=== PATIENT | male | born 1980 | race Caucasian/White ===

== ENCOUNTER 2022-07-17 20:15 | Emergency (ER) | payer BC ==
[2022-07-17 21:07] VITALS: TEMP 98.4
[2022-07-17] MEDS ORDERED: LIDOCAINE 1% INJ 10MG/ML (30 ML VIAL-PF) SQ ONE (21:25)
[2022-07-17] MEDS ORDERED: CLINDAMYCIN 600 MG/50 ML-D5W 600 MG in DEXTROSE/WATER 1 50ML.BAG IVPB ONE (21:30)
--- NOTE | 2022-07-17 22:07 | XR ---
PROCEDURE: XR hand complete RT - 3V DATE AND TIME: 07/17/2022 9:44 PM CLINICAL INDICATION: PHH; thumb infection TECHNIQUE: Department protocol COMPARISON: None FINDINGS: There is no fracture or malalignment. There is soft tissue swelling of the thumb, but no ra diopaque foreign body or evidence of soft tissue emphysema. IMPRESSION: Thumb soft tissue swelling.
--- NOTE | 2022-07-17 22:49 | ED ---
General Adult HPI - General Chief complaint: Skin/Abscess/Foreign Body Stated complaint: right thumb infection Time Seen by Provider: 07/17/22 21:10 Source: patient Mode of arrival: ambulatory Limitations: no limitations - History of Present Illness Initial comments: 41-year-old male presents to emergency department reporting infection of his right thumb. States that he was working on a car on Thursday when he accidentally scraped his hand on the engine. He is right-hand dominant. He went to urgent care on Thursday where he received a tetanus vaccine and was placed on Keflex. States he's been taking it as directed 3 times daily however feels that the wound is starting to look worse. He has been getting some drainage from the site. She does have some tenderness to the anterior aspect of the right thumb with flexion. Denies any fevers. No history of diabetes or drug use. No other alleviating, precipitating or modifying factors - Related Data Previous Rx's Medication Instructions Recorded clindamycin HCL [Cleocin] 300 mg PO Q6HR #28 cap 07/17/22 Allergies Allergy/AdvReac Type Severity Reaction Status Date / Time No Known Allergies Allergy Verified 07/17/22 21:07 Review of Systems ROS Statement: Those systems with pertinent positive or pertinent negative responses have been documented in the HPI. ROS Other: All systems not noted in ROS Statement are negative. Past Medical History Past Medical History: No Reported History History of Any Multi-Drug Resistant Organisms: None Reported Past Surgical History: No Surgical Hx Reported Past Psychological History: No Psychological Hx Reported Smoking Status: Never smoker Past Alcohol Use History: None Reported Past Drug Use History: None Reported General Exam Limitations: no limitations General appearance: alert, in no apparent distress Extremities exam: Present: normal inspection, full ROM, normal capillary refill. Absent: tenderness, pedal edema, joint swelling, calf tenderness Neurological exam: Present: alert, oriented X3, CN II-XII intact Psychiatric exam: Present: normal affect, normal mood Skin exam: Present: warm, dry (two areas of possible abscess right anterior thumb - 1.5 cm and 2.0 cm. central fluctuance no bleeding. no cellulitis. no decreased ROM. No joint swelling. 2+ radial and ulnar pulses) Course Vital Signs 07/17/22 07/17/22 21:05 22:55 Temperature 98.4 F Pulse Rate 87 72 Respiratory 16 15 Rate Blood Pressure 153/85 136/72 O2 Sat by Pulse 97 98 Oximetry Medical Decision Making - Medical Decision Making Was pt. sent in by a medical professional or institution ([facility], [facility], urgent care, hospital, or fdc...) When possible be specific @ -no Did you speak to anyone other than the patient for history (EMS, parent, family, police, friend...)? What history was obtained from this source @ -no Did you review nursing and triage notes (agree or disagree)? Why? @ -I reviewed and agree with nursing and triage notes Were old charts reviewed (outside hosp., previous admission, EMS record, old EKG, old radiological studies, urgent care reports/EKG's, fdc records)? Report findings @ -No old charts were reviewed Differential Diagnosis (chest pain, altered mental status, abdominal pain women, abdominal pain men, vaginal bleeding, weakness, fever, dyspnea, syncope, headache, dizziness, GI bleed, back pain, seizure, CVA, palpatations, mental health, musculoskeletal)? @ -cellulitis, retained foreign body, abscess, mrsa, tetanus EKG interpreted by me (3pts min.). @ -None done X-rays interpreted by me (1pt min.). @ -yes CT interpreted by me (1pt min.). @ -None done U/S interpreted by me (1pt. min.). @ -None done What testing was considered but not performed or refused? (CT, X-rays, U/S, labs)? Why? @ -None What meds were considered but not given or refused? Why? @ -None Did you discuss the management of the patient with other professionals (professionals i.e. [facility], [employer], lab, RT, psych nurse, social sciences instructor, dispatcher bus and trolley, teacher, founder and chief technical officer, comp field case manager)? Give summary @ -No Was smoking cessation discussed for >3mins.? @ -No Was critical care preformed (if so, how long)? @ -No Were there social determinants of health that impacted care today? How? (Homelessness, low income, unemployed, alcoholism, drug addiction, transportation, low edu. Level, literacy, decrease access to med. care, senior care, rehab)? @ -none Was there de-escalation of care discussed even if they declined (Discuss DNR or withdrawal of care, Hospice)? DNR status @ -No What co-morbidities impacted this encounter? (DM, HTN, Smoking, COPD, CAD, Cancer, CVA, ARF, Chemo, Hep., AIDS, mental health diagnosis, sleep apnea, morbid obesity)? @ -None Was patient admitted / discharged? Hospital course, mention meds given and route, prescriptions, significant lab abnormalities, going to OR and other pertinent info. @ -Upon arrival patient was placed into room 28. Thorough history and physical exam is performed. X-ray was performed which demonstrates no retained foreign bodies. Incision and drainage was performed using #11 blade. Cultures were obtained. Patient was given a dose of clindamycin. He will be discharged home on clindamycin. Instructed to allow 42-72 hours. If he has no improvement in his symptoms, he must return to the emergency room for IV anabiotics. Patient understood and was agreeable to this. Given written and verbal discharge instructions and discharged home in stable condition Undiagnosed new problem with uncertain prognosis? @ -No Drug Therapy requiring intensive monitoring for toxicity (Heparin, Nitro, Insulin, Cardizem)? @ -No Were any procedures done? @ -Yes - incision and drainage right thumb Diagnosis/symptom? @ -acute right thumb abscess, acute right thumb cellulitis Acute, or Chronic, or Acute on Chronic? @ -acute Uncomplicated (without systemic symptoms) or Complicated (systemic symptoms)? @ -uncomplicated Side effects of treatment? @ -No Exacerbation, Progression, or Severe Exacerbation? @ -No Poses a threat to life or bodily function? How? (Chest pain, [place], [place], pneumonia, PE, COPD, DKA, ARF, appy, cholecystitis, CVA, Diverticulitis, Homicidal, Suicidal, threat to staff... and all critical care pts) @ -No Disposition Clinical Impression: Cellulitis, Abscess of finger Disposition: HOME SELF-CARE Condition: Stable Instructions (If sedation given, give patient instructions): Abscess Incision and Drainage (ED) Additional Instructions: Start taking the new antibiotics. If your finger continues to look worse in 48- 72 hours, return to the hospital for IV antibiotics and hospitalization Prescriptions: clindamycin HCL [Cleocin] 300 mg PO Q6HR #28 cap Is patient prescribed a controlled substance at d/c from ED?: No Referrals: Francisco Andrade MD [Primary Care Provider] - 1-2 days Time of Disposition: 22:48
[2022-07-17 22:56] VITALS: BP 136/72; PULSE 72; RESP 15
== END 2022-07-17 23:04 | disposition home or self-care (01) ==
LOC: EC 20:15
DX: L02.511 Cutaneous abscess of right hand (principal)
CPT/HCPCS: 87070; 87205; 73130; 99283; 96365; 26010; J2001

== ENCOUNTER → 2023-05-07 | Outpatient (CLI) | payer BC ==
--- NOTE | 2023-05-08 14:48 | US ---
EXAMINATION TYPE: US venous doppler duplex LE LT DATE OF EXAM: 05/07/2023 4:14 PM COMPARISON: NONE CLINICAL INDICATION: Male, 42 years old with history of M79.605 PAIN IN LEFT LEG; pain in left leg SIDE PERFORMED: Left TECHNIQUE: The lower extremity deep venous system is examined utilizing real time linear array sonog miguel a with graded compression, doppler sonography and color-flow sonography. VESSELS IMAGED: Common Femoral Vein Deep Femoral Vein Greater Saphenous Vein * Femoral Vein Popliteal Vein Small Saphenous Vein * Proximal Calf Veins (* superficial vessels) Left Leg: Negative for DVT IMPRESSION: No evidence for DVT within the left lower extremity imaged from the groin to the upper calf.
== END | disposition home or self-care (01) ==
LOC: RADUSWWP 15:53
PROVIDERS: ATTEND Family Medicine
DX: M79.605 Pain in left leg (principal)

== ENCOUNTER 2023-06-11 12:19 | Inpatient (IN) | payer BC ==
--- NOTE | 2023-06-11 12:46 | ED ---
Psych HPI - General Chief Complaint: Psychiatric Symptoms Stated Complaint: mental health Time Seen by Provider: 06/11/23 12:36 Source: patient, RN notes reviewed Mode of arrival: ambulatory Limitations: no limitations - History of Present Illness Initial Comments: 42-year-old male presents emergency department with chief complaint of depression, suicide ideation. Patient states has been having increasing symptoms. He is currently on Effexor he states he is struggled with depression for most of his life. Patient states he had a recent divorce which symptoms are getting worse. He states he plans to jump in the river. Patient states that family has concerns and wanted him evaluated. - Related Data Home Medications Medication Instructions Recorded Confirmed Albuterol Sulfate [Albuterol 1 - 2 puff PO RT-Q6H PRN 06/11/23 06/11/23 Sulfate Hfa] Fluticasone/Umeclidin/Vilanter 1 puff INHALATION RT-DAILY 06/11/23 06/11/23 [Trelegy Ellipta 200-62.5-25] Venlafaxine HCl [Effexor XR] 150 mg PO DAILY 06/11/23 06/11/23 Allergies Allergy/AdvReac Type Severity Reaction Status Date / Time No Known Allergies Allergy Verified 06/11/23 13:58 Review of Systems ROS Statement: Those systems with pertinent positive or pertinent negative responses have been documented in the HPI. ROS Other: All systems not noted in ROS Statement are negative. Past Medical History Past Medical History: Asthma History of Any Multi-Drug Resistant Organisms: None Reported Past Surgical History: No Surgical Hx Reported Past Psychological History: Anxiety, Depression Smoking Status: Never smoker Past Alcohol Use History: None Reported Past Drug Use History: None Reported General Exam Limitations: no limitations General appearance: alert, in no apparent distress Head exam: Present: atraumatic, normocephalic, normal inspection Eye exam: Present: normal appearance, PERRL, EOMI. Absent: scleral icterus, conjunctival injection, periorbital swelling ENT exam: Present: normal exam, normal oropharynx, mucous membranes moist Neck exam: Present: normal inspection, full ROM. Absent: tenderness, meningismus, lymphadenopathy Respiratory exam: Present: normal lung sounds bilaterally. Absent: respiratory distress, wheezes, rales, rhonchi, stridor Cardiovascular Exam: Present: regular rate, normal rhythm, normal heart sounds. Absent: systolic murmur, diastolic murmur, rubs, gallop, clicks Neurological exam: Present: alert, oriented X3 Skin exam: Present: warm, dry, intact, normal color. Absent: rash Course Vital Signs 06/11/23 12:30 Temperature 98 F Pulse Rate 79 Respiratory 16 Rate Blood Pressure 142/92 O2 Sat by Pulse 98 Oximetry Medical Decision Making - Medical Decision Making Was pt. sent in by a medical professional or institution (, [facility], CRIME SC[employer] EVIDENCE TECHNICIAN, urgent care, hospital, or retirement...) When possible be specific @ -[No] Did you speak to anyone other than the patient for history (EMS, parent, family, police, friend...)? What history was obtained from this source @ -[No] Did you review nursing and triage notes (agree or disagree)? Why? @ -[I reviewed and agree with nursing and triage notes] Were old charts reviewed (outside hosp., previous admission, EMS record, old EKG, old radiological studies, urgent care reports/EKG's, retirement records)? Report findings @ -Sister providing some past medical history Differential Diagnosis (chest pain, altered mental status, abdominal pain women, abdominal pain men, vaginal bleeding, weakness, fever, dyspnea, syncope, headache, dizziness, GI bleed, back pain, seizure, CVA, palpatations, mental health, musculoskeletal)? @ -Differential Mental Health Depression, anxiety, bipolar, psychosis, schizophrenia, borderline personality, situational depression, adjustment disorder, behavioral disorder, brain tumor, malingering, substance abuse, encephalopathy, medication reaction, dementia, hypothyroidism, degenerative neurologic disorder, lupus.... This is not meant to be all-inclusive list EKG interpreted by me (3pts min.). @ -None X-rays interpreted by me (1pt min.). @ -[None done] CT interpreted by me (1pt min.). @ -[None done] U/S interpreted by me (1pt. min.). @ -[None done] What testing was considered but not performed or refused? (CT, X-rays, U/S, labs)? Why? @ -[None] What meds were considered but not given or refused? Why? @ -[None] Did you discuss the management of the patient with other professionals (professionals i.e. , [facility], CRIME SCENE EVIDENCE TECHNICIAN, lab, RT, psych nurse, social media executive, manager restaurant, teacher, staff electronic warfare officer, gearcase assembler)? Give summary @ -EPS evaluated the patient and recommended inpatient treatment Was smoking cessation discussed for >3mins.? @ -[No] Was critical care preformed (if so, how long)? @ -[No] Were there social determinants of health that impacted care today? How? (Homelessness, low income, unemployed, alcoholism, drug addiction, transport ation, low edu. Level, literacy, decrease access to med. care, nursing home, rehab)? @ -[No] Was there de-escalation of care discussed even if they declined (Discuss DNR or withdrawal of care, Hospice)? DNR status @ -[No] What co-morbidities impacted this encounter? (DM, HTN, Smoking, COPD, CAD, Cancer, CVA, ARF, Chemo, Hep., AIDS, mental health diagnosis, sleep apnea, morbid obesity)? @ -Depression Was patient admitted / discharged? Hospital course, mention meds given and route, prescriptions, significant lab abnormalities, going to OR and other pertinent info. @ -Admitted to psychiatric floor for further treatment management Undiagnosed new problem with uncertain prognosis? @ -[No] Drug Therapy requiring intensive monitoring for toxicity (Heparin, Nitro, Insulin, Cardizem)? @ -[No] Were any procedures done? @ -[No] Diagnosis/symptom? @ -Depression, suicide ideation Acute, or Chronic, or Acute on Chronic? @ -Yes Uncomplicated (without systemic symptoms) or Complicated (systemic symptoms)? @ -complicated Side effects of treatment? @ -[No] Exacerbation, Progression, or Severe Exacerbation? @ -[No] Poses a threat to life or bodily function? How? (Chest pain, [place], [place], pneumonia, PE, COPD, DKA, ARF, appy, cholecystitis, CVA, Diverticulitis, Homicidal, Suicidal, threat to staff... and all critical care pts) @ -yes patient has SI - Lab Data Lab Results 06/11/23 Range/Units 12:46 Urine Opiates Screen Not Detected (NotDetected) Ur Oxycodone Screen Not Detected (NotDetected) Urine Methadone Screen Not Detected (NotDetected) Ur Barbiturates Screen Not Detected (NotDetected) U Tricyclic Antidepress Not Detected (NotDetected) Ur Phencyclidine Scrn Not Detected (NotDetected) Ur Amphetamines Screen Not Detected (NotDetected) U Methamphetamines Scrn Not Detected (NotDetected) U Benzodiazepines Scrn Not Detected (NotDetected) Urine Cocaine Screen Not Detected (NotDetected) U Marijuana (THC) Screen Detected H (NotDetected) Disposition Clinical Impression: Depression, Suicidal ideation Disposition: TRANSFER TO PSYCH HOSP/UNIT Referrals: Francisco Andrade MD [Primary Care Provider] - 1-2 days Time of Disposition: 13:53
[2023-06-11 14:17] LABS: Amphetamine Screen,Urine Not Detected (NotDetected); Barbiturate Screen,Urine Not Detected (NotDetected); Benzodiazepines Screen,Urine Not Detected (NotDetected); Cocaine Screen,Urine Not Detected (NotDetected); Methadone Screen, Urine Not Detected (NotDetected); Opiate Screen,Urine Not Detected (NotDetected); Oxycodone Screen, Urine Not Detected (NotDetected); Phencyclidine Screen,Urine Not Detected (NotDetected); Tricyclic Antidepressant,Urine Not Detected (NotDetected); Urn Cannabinoid Scrn Detected (NotDetected)
[2023-06-11] MEDS ORDERED: ALBUTEROL INHALER 60 PUFF/8 GM INHALER (MHU) INHALATION PRN (18:08)
[2023-06-11] MEDS ORDERED: haloperidoL 5 MG TAB PO PRN (18:09)
[2023-06-11] MEDS ORDERED: MAGNESIUM HYDROXIDE 2,400 MG/30 ML CUP PO PRN (18:09)
[2023-06-11] MEDS ORDERED: IBUPROFEN 600 MG TAB PO PRN (18:09)
[2023-06-11] MEDS ORDERED: HALOPERIDOL LACTATE 5 MG/ML 1 ML VIAL IM PRN (18:09)
[2023-06-11] MEDS ORDERED: MAG HYDROX/AL HYDROX/SIMETH 355 ML BOTTLE PO PRN (18:09)
[2023-06-11] MEDS ORDERED: LORazepam 1 MG TAB PO PRN (18:09)
[2023-06-11] MEDS: LORazepam 1 MG TAB PO PRN (20:23)
[2023-06-11] MEDS: ACETAMINOPHEN TAB 325 MG TAB PO PRN (20:23)
[2023-06-11] MEDS ORDERED: traZODone HCL 100 MG TAB PO PRN (21:58)
--- NOTE | 2023-06-12 03:50 | P.MDCNMH ---
History of Present Illness H&P Date: 06/12/23 Chief Complaint: Medical evaluation 42-year-old male with moderate persistent asthma coming in for psych evaluation due to depression and suicidal ideation patient recently has been going through a divorce started having overwhelming negative thoughts was planning on jumping off the bridge and was urged by his family to come to the hospital for evaluation Patient otherwise denies any trouble breathing nausea vomiting chest pain denies any fevers chills denies any cough Patient denies tobacco smoking illicit drugs or heavy alcohol, he admits to vaping and marijuana review of systems Pertinent positives as noted in HPI. All other systems were reviewed and are negative on exam Constitutional: No acute distress, Eyes: Anicteric sclerae, moist conjunctiva, Pupils equal round reactive to light Lungs: Clear to auscultation Clear to percussion Normal respiratory effort, no accessory muscle use Cardiovascular: Heart regular in rate and rhythm, No murmurs, gallops, or rubs No peripheral edema Abdominal: Soft Nontender, no guarding, rebound or rigidity Abdomen moving with respiration Normoactive bowel sounds Extremities: No digital cyanosis No clubbing Pedal pulses intact and symmetrical Radial pulses intact and symmetrical No calf tenderness Psychiatric: Alert and oriented to person, place and time Neuro Muscles Strength 5/5 in all 4 extremities Sensation to light touch grossly present throughout Cranial nerves II-XII grossly intact Past Medical History Past Medical History: Asthma History of Any Multi-Drug Resistant Organisms: None Reported Past Surgical History: No Surgical Hx Reported Past Anesthesia/Blood Transfusion Reactions: No Reported Reaction Smoking Status: Vaper - Past Family History Father Family Medical History: No Reported History Mother Family Medical History: No Reported History Medications and Allergies Home Medications Medication Instructions Recorded Confirmed Type Albuterol Sulfate [Albuterol 1 - 2 puff PO RT-Q6H PRN 06/11/23 06/11/23 History Sulfate Hfa] Fluticasone/Umeclidin/Vilanter 1 puff INHALATION RT-DAILY 06/11/23 06/11/23 History [Trelegy Ellipta 200-62.5-25] Venlafaxine HCl [Effexor XR] 150 mg PO DAILY 06/11/23 06/11/23 History Allergies Allergy/AdvReac Type Severity Reaction Status Date / Time No Known Allergies Allergy Verified 06/11/23 13:58 Physical Exam Vitals: Vital Signs Temp Pulse Pulse Resp BP BP Pulse Ox 06/11/23 18:30 97.3 F L 92 20 160/91 98 06/11/23 18:26 85 14 120/73 98 06/11/23 12:30 98 F 79 16 142/92 98 Intake and Output 06/11/23 06/11/23 06/12/23 14:59 22:59 06:59 Other: Weight 90.718 kg 95.311 kg Cranial Nerve Examination - Cranial Nerves Cranial Nerve II- Optic: Intact Cranial Nerve III- Oculomotor: Intact Cranial Nerve IV- Trochlear: Intact Cranial Nerve V- Trigeminal: Intact Cranial Nerve - Abducens: Intact Cranial Nerve VII- Facial: Intact Cranial Nerve VIII- Auditory: Intact Cranial Nerve IX- Glossopharyngeal: Intact Cranial Nerve X- Vagus: Intact Cranial Nerve XI- Accessory: Intact Cranial Nerve XII- Hypoglossal: Intact Results Labs: Abnormal Lab Results - Last 24 Hours (Table) 06/11/23 Range/Units 12:46 U Marijuana (THC) Screen Detected H (NotDetected) Assessment and Plan Assessment: Moderate persistent asthma Continue home inhalers Albuterol inhaler as needed Depression and suicidal ideation Management per psych Obesity Patient counseled for lifestyle modification weight loss Blood work pending Urine drug screen positive for marijuana Patient stable from medical standpoint Thank you for this consultation
[2023-06-12] MEDS ORDERED: NICOTINE 14MG/24HR PATCH TRANSDERM SCH (09:00)
[2023-06-12 09:25] LABS: Basophils # (A) 0.1 k/uL (0-0.2); Basophils % (A) 1 %; Eosinophils # (A) 0.2 k/uL (0-0.7); Eosinophils % (A) 2 %; HCT 51.3 % (39.0-53.0); HGB 16.4 gm/dL (13.0-17.5); Lymphocytes # (A) 2.1 k/uL (1.0-4.8); Lymphocytes % (A) 29 %; MCV 87.5 fL (80.0-100.0); Mean Platelet Volume 7.8; Monocytes # (A) 0.4 k/uL (0-1.0); Monocytes % (A) 6 %; Neutrophils # (A) 4.4 k/uL (1.3-7.7); Neutrophils % (A) 60 %; Platelet Count 286 k/uL (150-450); RBC 5.86 m/uL (4.30-5.90); RDW 13.1 % (11.5-15.5); WBC 7.3 k/uL (3.8-10.6)
[2023-06-12] MEDS: FLUTICASONE 110 MCG INHALER INHALATION SCH (09:42)
[2023-06-12] MEDS: VENLAFAXINE HCL ER 150 MG CAP PO SCH (09:42)
[2023-06-12 11:14] LABS: ALT 55 U/L (4-49); AST 50 U/L (17-59); African American GFR (CKD) >90 (>60 ml/min/1.73 sqM); Albumin 4.9 g/dL (3.5-5.0); Alkaline Phosphatase 75 U/L (38-126); Anion Gap 9 mmol/L; Blood Urea Nitrogen 15 mg/dL (9-20); Calcium 10.2 mg/dL (8.4-10.2); Carbon Dioxide 29 mmol/L (22-30); Chloride 104 mmol/L (98-107); Glucose 114 mg/dL (74-99); Non-African American GFR(CKD) >90 (>60 ml/min/1.73 sqM); Potassium 4.7 mmol/L (3.5-5.1); Sodium 142 mmol/L (137-145); Total Bilirubin 0.9 mg/dL (0.2-1.3); Total Protein 7.9 g/dL (6.3-8.2)
[2023-06-12] MEDS: LITHIUM CARBONATE 150 MG CAP PO SCH (13:47)
--- NOTE | 2023-06-12 13:57 | P.HP ---
Psychiatric H&P - . H&P Date: 06/12/23 History & Physical: Allergies Allergy/AdvReac Type Severity Reaction Status Date / Time No Known Allergies Allergy Verified 06/11/23 13:58 Vital Signs Temp 98.1 F 06/12/23 06:51 Pulse 76 06/12/23 06:51 Resp 16 06/12/23 06:51 BP 140/82 06/12/23 06:51 Pulse Ox 98 06/12/23 06:51 FiO2 Intake & Output 06/11/23 06/12/23 06/12/23 18:59 06:59 18:59 Weight 95.311 kg 95.311 kg Laboratory Last Values Urine Opiates Screen Not Detected (NotDetected) 06/11/23 12:46 Ur Oxycodone Screen Not Detected (NotDetected) 06/11/23 12:46 Urine Methadone Screen Not Detected (NotDetected) 06/11/23 12:46 Ur Barbiturates Screen Not Detected (NotDetected) 06/11/23 12:46 U Tricyclic Antidepress Not Detected (NotDetected) 06/11/23 12:46 Ur Phencyclidine Scrn Not Detected (NotDetected) 06/11/23 12:46 Ur Amphetamines Screen Not Detected (NotDetected) 06/11/23 12:46 U Methamphetamines Scrn Not Detected (NotDetected) 06/11/23 12:46 U Benzodiazepines Scrn Not Detected (NotDetected) 06/11/23 12:46 Urine Cocaine Screen Not Detected (NotDetected) 06/11/23 12:46 U Marijuana (THC) Screen Detected (NotDetected) H 06/11/23 12:46 SARS-CoV-2 (PCR) Not Detected (Not Detectd) 06/11/23 15:09 06/12/23 08:54 IDENTIFYING DATA: Patient is a 42 year old male, , but , lives in a house with and daughter. Works an IT job. HPI: Patient presented to the hospital on 06/10. As per EPS note, "presenting with SI w plan to jump into the river. Cl reports the thoughts are related to life stressors surrounding a pending divorce, extramarital affair brought on by Cl with a co-worker, affair ending via co-worker and increased tension in workplace. Cl reports hx of depression and anxiety along with "some paranoia" about " what people will think of me." Cl reports having 1 child and is concerned about their wellbeing. Cl brought in by their sister who offered no additional comments or concerns. Cl presents overwhelmed, anxious, tearful, flat affect, soft speech, poor eye contact, and guarded. Cl reports the divorce process has not been started but has been discussed for the past 5 yrs." Stressors include work, relationship issues. Patient claims that he would not have checked into the unit, if he knew he wouldn't be able to leave. Been having anxiety and depression for a couple years now, more so the past couple months. Patient states he called his mom and told her that he feels he should jump into the river. Mother came over to check on the patient. Sister brought him into the ER. States he does not sleep well at night. Has trouble initiating sleep and staying asleep. Patient states his appetite is good. Patient denies any suicidal or homicidal ideations intent or plan. At this time patient denies any auditory or visual hallucinations. Patient denies any flight of ideas racing thoughts and increased in goal directed behavior. Patient admits to using marijuana and a nicotine vape. PAST PSYCHIATRIC HISTORY: Claims that he has a history of anxiety and depression. Denies any previous inpatient psychiatric admissions in the past. Has been to therapy in the past. Has taken Effexor 75mg, prescribed by his PCP Patient denies any history of suicide attempts in the past. PMH:As per ER note ALLERGIES: as per EMR CHEMICAL DEPENDENCY HISTORY: as per HPI FAMILY PSYCHIATRIC/SUBSTANCE USE HISTORY: denies SOCIAL HISTORY: Patient was born and raised in [place], [place], moved to [place] in . Has an associates degree from college. admits to a DUI in 2003. Lives in a house with his and daughter. Works an IT job. MENTAL STATUS EXAM: General Appearance: Patient appears to be stated age is alert, directable, and attempts to cooperate. Patient appears to have good hygiene and grooming. Several tattoos, glasses groomed dent, dressed in hospital gown. Behavior: Patient is seated without any agitated behavior. Poor eye contact. Focused on discharge, appears distressed. Speech: Patient's speech is fluent and nonpressured. MInimizing symptoms Mood/Affect: Patient reports their mood is "fine", affect is congruent and co nstricted. Manipulative. Guarded. Suicidality/Homicidality: Patient denies having any homicidal ideation intent or plan. Denies any suicidal ideations intent or plan Perceptions: Patient denies any visual hallucinations and denies any auditory hallucinations Minimizing symptoms. Though content/process: There is no evidence of any delusional thought content patient is manipulative. Memory and concentration: AOX3, grossly intact for the purposes of this session. Can spell "WORLD" backwards Judgment and insight: poor, impulsive. STRENGTHS/WEAKNESSES: strength is that patient is resilient. Weakness is that patient has poor judgment and is impulsive INTELLECT: average IMPRESSIONS: major depressive disorder without psychotic features Suicidal Ideation nicotine dependance cannabis use disorder PLAN: -Patient is admitted under voluntary status to [facility]HU for stabilization of psychiatric symptoms and safety. Patient has signed adult voluntary form and medication consent and is placed in patient's chart. -Medications : Will start patient on Effexor 150mg daily for anxiety/mood Remeron 15mg qhs for sleep/anxiety Fritch 150mg daily in adjunct with Effexor for anxiety/mood. -Ativan [and Haldol] PRN for agitation/aggression -Patient was counselled on substance abuse and desired to cut back on use -Patient was informed of the risks, benefits and side effects of the medication and patient verbally consented to taking the medications. -Internal Medicine consult to perform medical evaluation and physical. -NRT - nicotine patch -SW on board for discharge planning. Encourage patient to participate in groups to work on coping skills. 06/12/23 13:55
[2023-06-12] MEDS: NICOTINE GUM (POLACRILEX) 2 MG GUM BUCCAL PRN (15:35)
[2023-06-12 17:25] LABS: Chol/HDL Ratio 3.44 Ratio; LDL Cholesterol,Calculated 149.2 mg/dL (0.0-131.0)
[2023-06-12] MEDS: MIRTAZAPINE 15 MG TAB PO SCH (19:52)
[2023-06-13 09:25] VITALS: RESP 18
--- NOTE | 2023-06-13 12:09 | P.PN ---
Progress Note - Text Progress Note Date: 06/13/23 Interval history: Patient was seen wandering the hallways and was directable and agreeable to s peak with property underwriter. Patient was carrying a complaint form today in his hand. He appeared to be fairly argumentative today with property underwriter, demanding discharge. He appears to have fairly poor insight into his condition and need for treatment. He signed a AMA form yesterday and claims that he told his boss that he would be here on Thursday and is demanding to be discharged over the weekend or Thursday. He continues to minimize his suicidal thoughts and his plan to jump in the river, property underwriter attempted to explain patient's rights and to speak with a right advisor and he states that "I have already done not". He was threatening legal action towards property underwriter and to the hospital if he does not get discharged. He was fairly impulsive, minimizing his depression. Claims that he slept fairly last night ho sethver did take an Ativan. He claims that tonight he will try to take just the Remeron instead, does not want any other medications. At this time patient denies any suicidal or homicidal ideations intent or plan. Denies any Auditory or visual hallucinations. Patient denies any side effects from the medications and has been compliant with meds. Mental status exam: General Appearance: Patient appears to be wearing glasses, unshaven, stated age is alert, argumentative and demanding. Behavior: No agitated behavior. Patient is calm and directable irritable, argumentative Speech: Patient's speech is fluent and nonpressured. Irritable at times Mood/Affect: Mood is improving mildly, affect is incongruent and constricted. Suicidality/Homicidality: Patient denies having any suicidal or homicidal ideation intent or plan. Perceptions: Patient denies any auditory or visual hallucinations. Though content/process: There is no evidence of any delusional thought content and thought process is linear and goal-directed. Focused on discharge, minimizing his need for treatment and hospitalization Memory and concentration: AOX3, grossly intact for the purposes of this session Judgment and insight: Poor Assessment/Plan: Continue with current diagnosis. Patient continues to meet criteria for inpatient psychiatric admission for symptom stabilization and safety. Patient will be maintained on current psychotropic medication regimen. Monitor for medication compliance and for any psychotropic medication side effects. Will continue to monitor ongoing response to treatment. Encouraged participation in milieu. Patient signed AMA form on 3/22.
[2023-06-13] MEDS ORDERED: LORazepam 2 MG/ML INJ IM PRN (16:37)
[2023-06-14] MEDS ORDERED: LORazepam 2 MG/ML INJ IM PRN (11:47)
[2023-06-14] MEDS ORDERED: LORazepam 1 MG TAB PO PRN (11:47)
[2023-06-14] MEDS ORDERED: diphenhydrAMINE 50 MG/ML 1 ML VIAL IM PRN (11:48)
--- NOTE | 2023-06-14 12:10 | P.PN ---
Progress Note - Text Progress Note Date: 06/14/23 Interval history: Patient was seen wandering the hallways earlier today, made eye contact with resume writer and demanded to speak with him. Patient proceeded several times to be slamming doors and storming off into his room and making aggressive and demanding statements. He refused his medications this morning. [employer] H[employer] Developer went to patient's room today with a security as a aerobics teacher due to patient's agitation. Patient reportedly broke the phone yesterday while speaking with his over the phone, phone privileges were removed afterwards. Patient also broke the exit sign in the hallway and has been slamming doors and being aggressive and agitated with staff. Patient was sitting on the bed and had a loud tone of voice, demanding discharge. He states that "I was Kohorst to be in here" and states that "I am not siding with you guys" and told resume writer that he would jb him for violations of his rights. He claims that he does not need to be in the hospital and does not need medications and states that "I should have been discharged within 24 hours". He would frequently yell over top of resume writer's and not answer any of resume writer's questions. Pe[employer] H[employer] Developer attempted to explain why the phone privileges was taken away however patient did not allow him to. He dismissed resume writer from the room swearing and calling him names. He refused to answer any other questions. Mental status exam: General Appearance: Patient appears to be wearing glasses, unshaven, stated age is alert, argumentative and demanding. Aggressive Behavior: No agitated behavior. Patient is calm and directable irritable, argumentative Speech: Patient's speech is fluent and nonpressured. Irritable tone. Demanding tone Mood/Affect: Mood is the same, affect is incongruent and agitated Suicidality/Homicidality: Unable to obtain Perceptions: Unable to obtain Though content/process: Focused on discharge, minimizing his need for treatment and hospitalization. Threatening. Memory and concentration: AOX3, grossly intact for the purposes of this session Judgment and insight: Poor/impulsive Assessment/Plan: Continue with current diagnosis. Patient continues to meet criteria for inpatient psychiatric admission for symptom stabilization and safety. Will increase lithium to lithium ER 450 mg daily for mood stabilization/aggression, continue with Effexor 150 mg daily for mood/anxiety, discontinue Remeron and added Seroquel 50 mg nightly for mood stabilization/insomnia. Increased prn medications for agitation, will have Haldol, Ativan and Benadryl as needed for severe aggression. Continue with restricting phone privileges due to patient's agitation, breaking the phone and threatening behavior towards staff and his . Monitor for medication compliance and for any psychotropic medication side effects. Will continue to monitor ongoing response to treatment. Encouraged participation in milieu. Patient signed AMA form on 06/11. consider changing to involuntary route tomorrow if patient continues to be aggressive, poor insight/impuslive and not taking medications.
[2023-06-14] MEDS: QUEtiapine 50 MG TAB PO SCH (21:24)
[2023-06-15] MEDS: LITHIUM CARBONATE 150 MG CAP PO SCH (09:21)
[2023-06-15] MEDS ORDERED: MIRTAZAPINE 15 MG TAB PO PRN (12:56)
[2023-06-15] MEDS ORDERED: hydrOXYzine pamoate 25 MG CAP PO PRN (12:57)
--- NOTE | 2023-06-15 13:05 | P.PN ---
Progress Note - Text Progress Note Date: 06/15/23 Interval History: Patient was seen in his room and was directable and agreeable to speak with wr iter at the bedside. Patient appears much clearer today, and apologetic for his behavior over the weekend. He states that he feels that the change in medications was causing him to "rage". Patient has been taking his Effexor, but not the lithium or seroquel. He states that it was making him feel uneasy and irritable. Today, he states he feels much better, and he is not endorsing depression or anxiety at this time, and offers no other complaints. Butcher Assistant spoke with the patient about the AMA process, and told patient if he continues to psychiatrically improve, he will be discharged tomorrow. Patient agreeable, and stated, "He understands the assignment now" At this time patient denies any suicidal or homicidal ideations, intent or plan. Patient denies any auditory, visual hallucinations and denies any paranoia or delusions. Patient denies any side effects from the medications and has been compliant with meds. Mental status exam: General Appearance: Patient appears to be wearing glasses, unshaven, stated age is alert Behavior: No agitated behavior. Patient is calm and directable not irritable today, apologetic Speech: Patient's speech is fluent and nonpressured. Mood/Affect: Mood is the same, affect is incongruent and agitated Suicidality/Homicidality: denies Perceptions:goal orientated. Though content/process: improving, more goal oriented Memory and concentration: AOX3, grossly intact for the purposes of this session Judgment and insight: improving mildly IMPRESSIONS: major depressive disorder without psychotic features Suicidal Ideation nicotine dependance cannabis use disorder PLAN: -Patient is admitted under voluntary status to [facility]HU for stabilization of psychiatric symptoms and safety. Patient has signed adult voluntary form and medication consent and is placed in patient's chart. -Medications : Effexor 150mg daily for anxiety/mood d/c Seroquel d/c [place] due to reported increase in agitation. Visteral 50mg [id number] prn for anxiety, Remeron 15mg qhs prn for sleep -Ativan [and Haldol] PRN for agitation/aggression -NRT - nicotine patch -SW on board for discharge planning. Encourage patient to participate in groups to work on coping skills. Patient signed AMA form on 06/11. likely discharge tomorrow if patient continues to improve. SW to call patients and prepare for dc tomorrow and discuss safety planning if he is allowed back home.
[2023-06-16 06:53] VITALS: BP 139/86; PULSE 87; TEMP 97.3
--- NOTE | 2023-06-16 10:16 | P.DS ---
Providers Date of admission: 06/11/23 18:07 Expected date of discharge: 06/16/23 Attending physician: Josse Kearns MD Consults: 06/11/23 18:09 Consult Physician Routine Consulting Provider: Odessa Norris Consult Reason/Comments: H and P Do you want consulting provider notified?: Yes Primary care physician: Francisco Andrade - Discharge Diagnosis(es) (1) Major depressive disorder without psychotic features Current Visit: Yes Status: Acute Priority: High (2) Nicotine dependence Current Visit: Yes Status: Acute Priority: Low (3) Cannabis use disorder Current Visit: Yes Status: Acute Priority: Medium (4) Suicidal ideation Current Visit: Yes Status: Acute Priority: High Hospital Course: Admission HPI: Admission note was completed by web content writer "Patient presented to the hospital on . As per EPS note, "presenting with SI w plan to jump into the river. Cl reports the thoughts are related to life stressors surrounding a pending divorce, extramarital affair brought on by Cl with a co-worker, affair ending via co-worker and increased tension in workplace. Cl reports hx of depression and anxiety along with "some paranoia" about " what people will think of me." Cl reports having 1 child and is concerned about their wellbeing. Cl brought in by their sister who offered no additional comments or concerns. Cl presents overwhelmed, anxious, tearful, flat affect, soft speech, poor eye contact, and guarded. Cl reports the divorce process has not been started but has been discussed for the past 5 yrs." Stressors include work, relationship issues. Patient claims that he would not have checked into the unit, if he knew he wouldn't be able to leave. Been having anxiety and depression for a couple years now, more so the past couple months. Patient states he called his mom and told her that he feels he should jump into the river. Mother came over to check on the patient. Sister brought him into the ER. States he does not sleep well at night. Has trouble initiating sleep and staying asleep. Patient states his appetite is good. Patient denies any suicidal or homicidal ideations intent or plan. At this time patient denies any auditory or visual hallucinations. Patient denies any flight of ideas racing thoughts and increased in goal directed behavior. Patient admits to using marijuana and a nicotine vape." Hospital course: Upon admission to the unit patient was directable and agreeable to commence treatment and signed adult voluntary form. Patient however was argumentative afterwards with web content writer and minimized his need for hospitalization, he signed AMA form and was requesting discharge. Patient was initially argumentative, agitated, broke several things on the unit, was difficult to redirect however with time and treatment he eventually got along well with other patients on the unit and followed unit protocol. Patient had claimed that one of the medications that he was started on made him irritable, he identified lithium is causing this. He requested to have it discontinued and wanted to remain on only Effexor 150 mg daily for mood/anxiety instead. Patient spoke of his stressors and engaged in therapy both group and individual. Patient was also seen by medical team for history and physical exam. Throughout the course of the hospitalization patient gradually improved with regards to mood, anxiety, agitation, sleep and returned back to their baseline level of functioning. On the day of discharge patient denied any suicidal or homicidal ideations intent or plan denied any auditory or visual hallucinations. Patient endorsed wanting to live for his health, kids and family. The patient denied any access to guns or weapons. Patient denied any paranoia and did not endorse any delusions. Patient does have a significant history of substance abuse and was counseled on abstaining from all substances including alcohol and marijuana. Patient elected to do outpatient substance use treatment program as an outpatient in the community. Patient was also counseled on the medications and need for regular compliance and was encouraged to follow-up with their outpatient appointment for mental health and also for primary care. Prior to discharge a family meeting will be arranged by social work specialist to answer any questions and ensure safety upon discharge. rider ticket worker will speak with patient's over the phone to see if he is allowed to come back home. If patient is not allowed back home then patient will be going to his mother's house. Patient denies any access to guns or weapons. Mental status exam: General Appearance: Patient appears to be wearing glasses stated age is alert, pleasant, and cooperative. Patient is in no acute distress and has improved hygiene and grooming Behavior: Patient is calmly seated without any agitated behavior. Speech: Patient's speech is fluent and nonpressured. Mood/Affect: Patient reports their mood is "good", affect is congruent and euthymic. Suicidality/Homicidality: Patient denies having any suicidal or homicidal ideation intent or plan. Perceptions: Patient denies any auditory or visual hallucinations. Though content/process: There is no evidence of any delusional thought content and thought process is linear and goal-directed. More future oriented Memory and concentration: AOX3, grossly intact for the purposes of this session. Can spell "WORLD" backwards correctly. Judgment and insight: improved with guarded prognosis Impression: major depressive disorder without psychotic features Suicidal Ideation nicotine dependance cannabis use disorder Plan: -Continue with discharge today as patient has improved and stabilized psychiatrically and is not currently an imminent threat to himself and/or others. Patient will remain at chronically elevated risk for harm to self and/or others due to his impulsivity. -Continue medications: Effexor 150 mg daily for mood/anxiety. -Patient was counseled on the need for medication compliance and appropriate follow-up at mental health and also primary care for medical issues. Patient verbalized understanding and agreed. -Social work to contact patient's over the phone prior to discharge to ensure safety at home and if patient is allowed to return back home. If patient is not allowed back home then he will be discharged to his mother's house with a safety plan. Social work also to arrange for patients follow up appointments for psychiatric care along with follow up with primary care provider. -Patient counseled on abstaining from recreational drugs and marijuana and alcohol. Was informed/educated on the adverse effects on their physical and mental health. Patient verbally agreed and understood. -Patient was instructed to return to the hospital or seek immediate medical care if their psychiatric or medical symptoms do worsen or reoccur. Allergies Allergy/AdvReac Type Severity Reaction Status Date / Time No Known Allergies Allergy Verified 06/11/23 13:58 Laboratory Results WBC 7.3 k/uL (3.8-10.6) 06/12/23 07:56 RBC 5.86 m/uL (4.30-5.90) 06/12/23 07:56 Hgb 16.4 gm/dL (13.0-17.5) 06/12/23 07:56 Hct 51.3 % (39.0-53.0) 06/12/23 07:56 MCV 87.5 fL (80.0-100.0) 06/12/23 07:56 MCH 28.0 pg (25.0-35.0) 06/12/23 07:56 MCHC 32.0 g/dL (31.0-37.0) 06/12/23 07:56 RDW 13.1 % (11.5-15.5) 06/12/23 07:56 Plt Count 286 k/uL (150-450) 06/12/23 07:56 MPV 7.8 06/12/23 07:56 Neutrophils % 60 % 06/12/23 07:56 Lymphocytes % 29 % 06/12/23 07:56 Monocytes % 6 % 06/12/23 07:56 Eosinophils % 2 % 06/12/23 07:56 Basophils % 1 % 06/12/23 07:56 Neutrophils # 4.4 k/uL (1.3-7.7) 06/12/23 07:56 Lymphocytes # 2.1 k/uL (1.0-4.8) 06/12/23 07:56 Monocytes # 0.4 k/uL (0-1.0) 06/12/23 07:56 Eosinophils # 0.2 k/uL (0-0.7) 06/12/23 07:56 Basophils # 0.1 k/uL (0-0.2) 06/12/23 07:56 Sodium 142 mmol/L (137-145) 06/12/23 07:56 Potassium 4.7 mmol/L (3.5-5.1) 06/12/23 07:56 Chloride 104 mmol/L (98-107) 06/12/23 07:56 Carbon Dioxide 29 mmol/L (22-30) 06/12/23 07:56 Anion Gap 9 mmol/L 06/12/23 07:56 BUN 15 mg/dL (9-20) 06/12/23 07:56 Creatinine 0.88 mg/dL (0.66-1.25) 06/12/23 07:56 Est GFR (CKD-EPI)AfAm >90 (>60 ml/min/1.73 sqM) 06/12/23 07:56 Est GFR (CKD-EPI)NonAf >90 (>60 ml/min/1.73 sqM) 06/12/23 07:56 Glucose 114 mg/dL (74-99) H 06/12/23 07:[address] Glu mg/dL 114 mg/dL 06/12/23 07:56 Hemoglobin A1c 5.6 % (<=6.0) 06/12/23 07:56 Calcium 10.2 mg/dL (8.4-10.2) 06/12/23 07:56 Total Bilirubin 0.9 mg/dL (0.2-1.3) 06/12/23 07:56 AST 50 U/L (17-59) 06/12/23 07:56 ALT 55 U/L (4-49) H 06/12/23 07:56 Alkaline Phosphatase 75 U/L (38-126) 06/12/23 07:56 Total Protein 7.9 g/dL (6.3-8.2) 06/12/23 07:56 Albumin 4.9 g/dL (3.5-5.0) 06/12/23 07:56 Triglycerides 141.00 mg/dL (0.00-149.00) 06/12/23 07:56 Cholesterol 250.00 mg/dL (0.00-200.00) H 06/12/23 07:56 LDL Cholesterol, Calc 149.2 mg/dL (0.0-131.0) H 06/12/23 07:56 VLDL Cholesterol, Calc 28.20 mg/dL (5.00-40.00) 06/12/23 07:56 HDL Cholesterol 72.60 mg/dL (40.00-60.00) H 06/12/23 07:56 Cholesterol/HDL Ratio 3.44 Ratio 06/12/23 07:56 TSH 1.400 mIU/L (0.465-4.680) 06/12/23 07:56 Urine Opiates Screen Not Detected (NotDetected) 06/11/23 12:46 Ur Oxycodone Screen Not Detected (NotDetected) 06/11/23 12:46 Urine Methadone Screen Not Detected (NotDetected) 06/11/23 12:46 Ur Barbiturates Screen Not Detected (NotDetected) 06/11/23 12:46 U Tricyclic Antidepress Not Detected (NotDetected) 06/11/23 12:46 Ur Phencyclidine Scrn Not Detected (NotDetected) 06/11/23 12:46 Ur Amphetamines Screen Not Detected (NotDetected) 06/11/23 12:46 U Methamphetamines Scrn Not Detected (NotDetected) 06/11/23 12:46 U Benzodiazepines Scrn Not Detected (NotDetected) 06/11/23 12:46 Urine Cocaine Screen Not Detected (NotDetected) 06/11/23 12:46 U Marijuana (THC) Screen Detected (NotDetected) H 06/11/23 12:46 SARS-CoV-2 (PCR) Not Detected (Not Detectd) 06/11/23 15:09 Vital Signs Temp 97.3 F L 06/16/23 06:19 Pulse 87 06/16/23 06:19 Resp 18 06/13/23 09:09 BP 139/86 06/16/23 06:19 Pulse Ox 98 06/13/23 09:09 FiO2 Patient Condition at Discharge: Stable Plan - Discharge Summary Discharge Rx Participant: Yes New Discharge Prescriptions: New Nicotine Gum (Polacrilex) [Nicorette] 2 mg BUCCAL Q4HR PRN 30 Days #180 pieceofgum PRN Reason: Nicotine Cravings Continue Venlafaxine HCl [Effexor XR] 150 mg PO DAILY 30 Days #30 cap Fluticasone/Umeclidin/Vilanter [Trelegy Ellipta 200-62.5-25] 1 puff INHALATION RT-DAILY Albuterol Sulfate [Albuterol Sulfate Hfa] 1 - 2 puff PO RT-Q6H PRN PRN Reason: Shortness Of Breath Discharge Medication List Albuterol Sulfate [Albuterol Sulfate Hfa] 1 - 2 puff PO RT-Q6H PRN 06/11/23 [History] Fluticasone/Umeclidin/Vilanter [Trelegy Ellipta 200-62.5-25] 1 puff INHALATION RT-DAILY 06/11/23 [History] Nicotine Gum (Polacrilex) [Nicorette] 2 mg BUCCAL Q4HR PRN 30 Days #180 pieceofgum 06/16/23 [Rx] Venlafaxine HCl [Effexor XR] 150 mg PO DAILY 30 Days #30 cap 06/16/23 [Rx] Follow up Appointment(s)/Referral(s): Francisco Andrade MD [Primary Care Provider] - 1-2 days Patient Instructions/Handouts: How to Stop Smoking (DC), Depression (DC) Activity/Diet/Wound Care/Special Instructions: Avoid the use of street drugs and alcohol. Take all medications as prescribed. When you are in need of refills on your medications, please contact your medical provider and/or outpatient psychiatrist/provider to have this done. Please go to your scheduled outpatient appointment for aftercare treatment. If symptoms return or become worse, call the crisis line at and/or go to the nearest emergency room for evaluation. National Suicide Hotline 988. Discharge Disposition: HOME SELF-CARE
== END 2023-06-16 12:01 | disposition home or self-care (01) | DRG 885 ==
LOC: EC 12:19 → 3MHU 18:07
PROVIDERS: ADMIT Psychiatry & Neurology Psychiatry; ATTEND Psychiatry & Neurology Psychiatry
DX: F32.2 Major depressive disorder, single episode, severe without psychotic features (principal); R45.851 Suicidal ideations; Z63.5 Disruption of family by separation and divorce; F41.9 Anxiety disorder, unspecified; R45.1 Restlessness and agitation; E66.9 Obesity, unspecified; Z68.32 Body mass index [BMI] 32.0-32.9, adult; Z11.52 Encounter for screening for COVID-19; Z28.21 Immunization not carried out because of patient refusal; J45.40 Moderate persistent asthma, uncomplicated; F17.290 Nicotine dependence, other tobacco product, uncomplicated; Z71.6 Tobacco abuse counseling; Z71.51 Drug abuse counseling and surveillance of drug abuser; Z71.89 Other specified counseling; Z71.3 Dietary counseling and surveillance
CPT/HCPCS: 80053; 80061; 80306; 82075; 83036; 84443; 85025; 87635; 99285